=== PATIENT | female | born 1970 | race Asian ===

== ENCOUNTER 2024-02-10 14:52 | Emergency (ER) | payer OTHER, SELFPAY ==
[2024-02-10 15:04] VITALS: BP 113/79
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
[2024-02-10] MEDS: OCUFLOX 1 DROP OPHTH (18:14)
== END 2024-02-10 18:20 | disposition home or self-care (01) ==
LOC: EMR 14:52
PROVIDERS: EMERGENCY PHYSICIAN Emergency Medicine; FAMILY PHYSICIAN Internal Medicine Geriatric Medicine
DX: H10.9 Unspecified conjunctivitis (principal); I13.2 Hypertensive heart and chronic kidney disease with heart failure and with stage 5 chronic kidney disease, or end stage renal disease; I50.9 Heart failure, unspecified; N18.6 End stage renal disease; E11.40 Type 2 diabetes mellitus with diabetic neuropathy, unspecified; F41.9 Anxiety disorder, unspecified; F32.A Depression, unspecified; Z87.891 Personal history of nicotine dependence
CPT/HCPCS: 99283

== ENCOUNTER → 2024-04-02 12:34 | Outpatient (REF) | payer OTHER, SELFPAY | LOC: DHVS 12:34 | PROVIDERS: ATTENDING PHYSICIAN Physician Assistant; FAMILY PHYSICIAN Surgery Vascular Surgery | DX: Z99.2 Dependence on renal dialysis (principal) | CPT/HCPCS: 93990 ==

== ENCOUNTER → 2025-05-13 13:25 | Outpatient (REF) | payer OTHER, SELFPAY | LOC: WDC 13:25 | PROVIDERS: ATTENDING PHYSICIAN Internal Medicine | DX: Z12.31 Encounter for screening mammogram for malignant neoplasm of breast (principal) | CPT/HCPCS: 77063; 77067 ==